=== PATIENT | male | born 1940 | race Caucasian/White ===

== ENCOUNTER → 2017-04-17 | Emergency (ER) | payer OTHER ==
[~2017-04-17] VITALS: Ht 165.1 cm; Wt 72.6 kg
[~2017-04-17] MED LIST: ALLOPURINOL100 MG PO; ALLOPURINOL300 MG; AMOX1TAB12 PO; CATAFLAM50 MG PO; CENTRUM MEN'S1 EACH PO; CIPRO750 MG PO; CLONAZEPAM1 MG PO; COLACE100 MG PO; DOCUSATE SODIU100 MG PO; ECOTRIN81 MG; ECOTRIN81 MG PO; FOLIC PO; FUROSEMIDE20 MG; GABAPENTIN800 MG PO; GLUCOPHAGE XR750 MG; LASIX20 MG; LEVAQUIN750 MG PO; LISINOPRIL20 MG; LISINOPRIL20 MG PO; LYRICA100 MG PO; METFORMIN HCL500 M1 PO; METHYLPREDNISOLO1 GM MC; MUCINEX1200 MG/BO PO; NEURONTIN800 MG PO; ORPH100T PO; PERCOCET 5-3251 EACH PO; PERCOCET 5/3251 TAB PO; POLY119PG PO; PROTEINEX; PROTONIX20 MG PO; PULMICORT1 MG/2 ML IH; SEPTRA PO; SIMVASTATIN40 MG; SURFAK240 M1 PO; TAMS0.4C; TAMS0.4C PO; TAMSULOSIN PO; TRAM1TAB98 PO; TUSSI PRES-B L120 M1 PO; ULTRACET PO; VITAMIN D-32000 UNIT; ZOCOR20 MG; ZOCOR40 MG PO; ZYLOPRIM300 MG PO
== END | disposition home or self-care (01) ==
LOC: ER 16:28
DX: S00.03XA Contusion of scalp, initial encounter (principal); S30.0XXA Contusion of lower back and pelvis, initial encounter; W18.09XA Striking against other object with subsequent fall, initial encounter; Y93.89 Activity, other specified; Y92.018 Other place in single-family (private) house as the place of occurrence of the external cause; Y99.8 Other external cause status

== ENCOUNTER 2017-11-08 10:14 | Emergency (ER) | payer OTHER ==
[~2017-11-08] VITALS: Ht 165.1 cm; Wt 77.1 kg
[2017-11-08] MEDS ORDERED: PROMETHAZINE W118 ML PO (14:59)
[2017-11-08] MEDS ORDERED: TESSALON PERLE100 M1 PO (14:59)
== END 2017-11-08 15:05 | disposition home or self-care (01) ==
LOC: ER 10:14
DX: J20.8 Acute bronchitis due to other specified organisms (principal)

== ENCOUNTER → 2018-01-02 | Emergency (ER) | payer OTHER ==
[~2018-01-02] VITALS: Ht 165.1 cm; Wt 63.5 kg
[~2018-01-02] MED LIST changes: +LASIX20 MG PO; +PROMETHAZINE W118 ML PO; +TESSALON PERLE100 M1 PO
== END | disposition home or self-care (01) ==
LOC: ER 11:52
DX: R19.07 Generalized intra-abdominal and pelvic swelling, mass and lump (principal); R10.2 Pelvic and perineal pain

== ENCOUNTER 2018-01-13 20:06 | Emergency (ER) | payer OTHER ==
[~2018-01-13] VITALS: Ht 165.1 cm; Wt 63.5 kg
[2018-01-14] MEDS ORDERED: KETO10TA2 PO (02:30)
[2018-01-14] MEDS ORDERED: PERCOCET 5-3251 EACH PO (02:31)
[2018-01-14] MEDS ORDERED: INTESTINEX680 M1 PO (02:31)
[2018-01-14] MEDS ORDERED: LEVSIN/SL0.125 MG SL (02:31)
== END 2018-01-14 02:48 | disposition home or self-care (01) ==
LOC: ER 20:06
DX: R31.29 Other microscopic hematuria (principal); R10.31 Right lower quadrant pain

== ENCOUNTER 2018-03-05 13:32 | Emergency (ER) | payer OTHER ==
[~2018-03-05] VITALS: Ht 162.6 cm; Wt 63.5 kg
[~2018-03-05 13:32] MED LIST changes: +INTESTINEX680 M1 PO; +KETO10TA2 PO; +LEVSIN/SL0.125 MG SL
== END 2018-03-05 21:24 | disposition home or self-care (01) ==
LOC: ER 13:32
DX: K40.90 Unilateral inguinal hernia, without obstruction or gangrene, not specified as recurrent (principal)

== ENCOUNTER → 2018-03-20 | Day surgery (SDC) | payer OTHER ==
[~2018-03-20] MED LIST changes: +MIRALAX17 GM PO; +VIT PO
== END | disposition home or self-care (01) ==
LOC: ADM 03-17 10:30 → CIR.AMB 10:14
DX: K40.90 Unilateral inguinal hernia, without obstruction or gangrene, not specified as recurrent (principal)

== ENCOUNTER 2019-04-28 06:50 | Emergency (ER) | payer OTHER ==
[~2019-04-28] VITALS: Ht 165.1 cm; Wt 61.2 kg
[2019-04-28] MEDS ORDERED: LIPITOR40 M1 PO (07:15)
[2019-04-28] MEDS ORDERED: ADRENOID CAPSU1 EACH PO (07:15)
[2019-04-28] MEDS ORDERED: PLAVIX75 MG PO (07:17)
== END 2019-04-28 08:53 | disposition home or self-care (01) ==
LOC: ER 06:50
DX: M25.552 Pain in left hip (principal)

== ENCOUNTER 2019-09-09 08:07 | Inpatient (IN) | payer OTHER ==
[~2019-09-09] VITALS: Ht 167.6 cm; Wt 59.0 kg
[~2019-09-09 08:07] MED LIST changes: +ADRENOID CAPSU1 EACH PO; +LIPITOR40 M1 PO; +PLAVIX75 MG PO
--- NOTE | 2019-09-09 08:35 | NUR ---
PATIENT IS RECIEVED ALERTA AND ORIENTED X3 AND SAYS THAT SINCE THIS MORNING HE HASN'T BEEN ABLE TO FEEL HIS LEFT ARMS. HE SAYS HIS ARM IS NUMB AND AND CAN'T MOVE HIS FINGERS. PATIENT IS VISIBLY SHOWING MOVEMENT IN LEFT ARM.
--- NOTE | 2019-09-09 08:52 | NUR ---
PACIENTE ALERTA Y ORIENTADO EN DELORES WILMER ESFERAS, ES ORIENTADO SOBRE ORDENES MEDICAS, REFIERE ENTENDER. SE COLECTAN MUESTRAS DE DANISH, SE CANALIZA VENA, PENDIENTE CT SCAN DE BRIDGET. PACIENTE PUEDE SUBIR Y BAJAR EXTREMIDADES SUPERIORES E INFERIORES, SIN EMBARGO NO TIENE FUERZA PARA CERRAR MANO LT. NO PRESENTA DESVIACION EN LOS LABIOS, CARLA SIMETRICO.
[2019-09-09] MEDS ORDERED: VITAMIN D350 MC3 PO (11:07)
[2019-09-11] MEDS ORDERED: PRE PROTEIN 2030 ML PO (13:03)
== END 2019-09-11 14:34 | disposition home or self-care (01) | DRG 65 ==
LOC: ER 08:07 → MEDI 10:15
PROVIDERS: ADMIT Internal Medicine; ATTEND Internal Medicine
PROC: B020ZZZ Computerized Tomography (CT Scan) of Brain (ICD-10-PCS; principal; 2019-09-09)
PROC: B345ZZZ Ultrasonography of Bilateral Common Carotid Arteries (ICD-10-PCS; 2019-09-09)
PROC: B24BZZZ Ultrasonography of Heart with Aorta (ICD-10-PCS; 2019-09-09)
PROC: B030ZZZ Magnetic Resonance Imaging (MRI) of Brain (ICD-10-PCS; 2019-09-09)
PROC: 4A12X4Z Monitoring of Cardiac Electrical Activity, External Approach (ICD-10-PCS; 2019-09-09)
DX: I63.411 Cerebral infarction due to embolism of right middle cerebral artery (principal); G81.04 Flaccid hemiplegia affecting left nondominant side; I10 Essential (primary) hypertension; I34.0 Nonrheumatic mitral (valve) insufficiency; R29.702 NIHSS score 2; E11.9 Type 2 diabetes mellitus without complications; Z20.828 Contact with and (suspected) exposure to other viral communicable diseases; Z79.4 Long term (current) use of insulin
CPT/HCPCS: 70551

== ENCOUNTER 2019-09-16 19:48 | Emergency (ER) | payer OTHER ==
[~2019-09-16] VITALS: Ht 165.1 cm; Wt 61.2 kg
[~2019-09-16 19:48] MED LIST changes: +PRE PROTEIN 2030 ML PO; +VITAMIN D350 MC3 PO
== END 2019-09-17 01:59 | disposition home or self-care (01) ==
LOC: ER 19:48
DX: K52.9 Noninfective gastroenteritis and colitis, unspecified (principal)